=== PATIENT | male | born 1980 | race Caucasian/White ===

== ENCOUNTER 2016-09-05 02:16 | Emergency (ER) | payer OTHER ==
[2016-09-05] MEDS ORDERED: HYDROmorphone 1 MG/ML SYRINGE IM STA ×2 (03:13→04:14)
[2016-09-05] MEDS ORDERED: diazePAM 5 MG TABLET PO STA (03:13)
[2016-09-05] MEDS ORDERED: HYDROmorphone 1 MG/ML SYRINGE ONE ×2 (03:15→04:18)
[2016-09-05] MEDS ORDERED: diazePAM 5 MG TABLET PO ONE (03:15)
[2016-09-05] MEDS ORDERED: ONDANSETRON ODT 4 MG TABLET ONE (05:11)
[2016-09-05] MEDS ORDERED: ONDANSETRON ODT 4 MG TABLET TL STA ×2 (05:11)
== END 2016-09-05 05:20 | disposition home or self-care (01) ==
DX: M54.5 Low back pain (principal)
CPT/HCPCS: 81003; 96372; 99283; 99284; A9270; J1170; Q0162

== ENCOUNTER 2017-06-19 05:39 | Emergency (ER) | payer OTHER ==
--- NOTE | 2017-06-19 05:47 | ED Physician Documentation ---
PD HPI HEENT - Stated complaint Stated Complaint: SORE THROAT - History obtained from History obtained from: Patient - History of Present Illness Timing - onset: How many days ago (4) Timing - duration: Days (4) Timing - details: Gradual onset, Waxing and waning Pain level now: 5 Location: Throat Improves: Nothing Worsens: Sw[place]lowing Associated symptoms: Fever (Tmax 103), Cough. No: Unable to swallow Similar symptoms before: Has not had sx before Recently seen: Not recently seen - Additional information Additional information: c/o 3-4 days of sore throat, fever (Tmax 103), mild [employer] cough, generalized malaise, myalgias, and fatigue Review of Systems Constitutional: reports: Fever, Chills, Myalgias, Fatigue, Sweats Ears: reports: Ear pain (mild, bilateral) Nose: denies: Rhinorrhea / runny nose, Congestion, Sinus pressure / pain Throat: reports: Sore throat Respiratory: reports: Cough. denies: Dyspnea, Wheezing GI: reports: Reviewed and negative : denies: Dysuria, Frequency PD PAST MEDICAL HISTORY - Past Medical History Past Medical History: No - Past Surgical History Past Surgical History: No - Present Medications Home Medications: Ambulatory Orders Medication Instructions Recorded Confirmed HYDROcod/ACETAM 5/325 [[place] 5/325] 1 - 2 ea PO Q6H PRN #20 tablet 09/05/16 Ondansetron HCl [Zofran] 4 mg PO Q6HR PRN #14 tablet 09/05/16 diazePAM [Valium] 5 mg PO TID PRN #20 tablet 09/05/16 - Allergies Allergies/Adverse Reactions: Allergies Allergy/AdvReac Type Severity Reaction Status Date / Time No Known Drug Allergies Allergy Verified 06/19/17 05:54 - Social History Does the pt smoke?: No Smoking Status: Never smoker Does the pt drink ETOH?: Yes Does the pt have substance abuse?: No - Immunizations Immunizations are current?: Yes - POLST Patient has POLST: No PD ED PE NORMAL - Vitals Vital signs reviewed: Yes - General General: Alert and oriented X 3, No acute distress, Well developed/nourished - HEENT HEENT: Ears normal, Moist mucous membranes - Neck Neck: Supple, no meningeal sign - Respiratory Respiratory: No respiratory distress, Clear bilaterally - Derm Derm: Other (bilateral hands: 4-5 erythematous papules, nontender, scattered on palmar surfaces as well as fingers and 1 lesion on dorsum) PD ED PE EXPANDED - HEENT HEENT: Moist mucous membranes, Pharyngeal erythema, Tonsillar exudate Results - Vitals Vitals: Oxygen O2 Source Room air - Labs Labs: Microbiology 06/19/17 05:54 Group A Strep Throat Culture - Final Throat MIXED OROPHARYNGEAL ALYSON PRESENT. NO BETA STREP PRESENT IN CULTURE. Laboratory Tests 06/19/17 05:54 Group A Strep Rapid Negative PD MEDICAL DECISION MAKING - ED course Complexity details: reviewed results, re-evaluated patient, considered differential, d/w patient ED course: given decadron for pharyngitis. significant findings on exam but (-) result on rapid strep, so suspect viral pharyngitis pending cultures. High fevers are suggestive of influenza, but patient would not fall into category of higher risk for complications of influenza, and thus would not benefit from treatment ( such as Tamiflu), and thus I did not test him for influenza. He says his son was just diagnosed with hand/foot/mouth disease, and thus patient might have this, as well (he does have a few lesions on his hands, but the oropharyngeal findings would be atypical for h/f/m, as there are no white plaques or ulcerated lesions and area of involvement is limited to posterior o/p). If he has h/f/m, there is no specific testing nor treatment. Departure - Departure Disposition: 01 Home, Self Care Clinical Impression: Pharyngitis Qualifiers: Pharyngitis/tonsillitis etiology: unspecified etiology Qualified Code(s): J02.9 - Acute pharyngitis, unspecified Condition: Good Instructions: ED Pharyngitis Viral Report Pending Follow-Up: FILIBERTO RAMÍREZ [Primary Care Provider] - Forms: Activity restrictions Discharge Date/Time: 06/19/17 06:35
[2017-06-19 05:54] VITALS: BP 135/80
[2017-06-19] MEDS ORDERED: HYDROcod/ACET 5/325 Prepack 6 PO STA (06:22)
[2017-06-19] MEDS ORDERED: DEXAMETHASONE 10 MG/ML VIAL PO STA (06:22)
[2017-06-19] MEDS ORDERED: CHERRY SYRUP 10 ML UDC PO ONE (06:33)
== END 2017-06-19 06:35 | disposition home or self-care (01) ==
LOC: ED 05:39
DX: J02.9 Acute pharyngitis, unspecified (principal)
CPT/HCPCS: 87070; 87430; 99283; A9270